=== PATIENT | male | born 1945 | race Caucasian/White ===

== ENCOUNTER 2019-10-09 18:38 | Inpatient (IN) | payer OTHER ==
[~2019-10-09] VITALS: Ht 182.9 cm; Wt 60.9 kg
[2019-10-09 18:20] VITALS: BP 146/77
--- NOTE | 2019-10-10 07:18 | NUR ---
10-09-19 CARE TRANSFERED 5 PT SUPINE RESTING WITH EYES CLOSED, PER SHIFT REPORT PT ARRIVED ON UNIT 1820 VS FOLLOWS B/P 146/77, P 80, R 16, T 98.2, 02 SAT 98%. THIS IS A LIMITED ADMISSION R/T SEDATION. SAT INSTRUCTOR HCP CONTACTED VIA TELEPHONE PT CURRENT MEDICATION REVIEWED AND ORDERS RECEIVED. ADMIT QUESTIONS WHERE ANSWERED BY KERRI CANO PT GRANDDAUGHTER. LATER PT WAS AWAKE, AAOX1 AND PT SPEECH WAS GARBLED (DURING REPORT OFF GOING RN REPORTED HE WAS NONVERBLED). PT DID STATED NO TO SI/SH/HI/VAH; AND DPSUDHA DID STATE SHE DID NOT THINK HE WAS SI/HI BUT UNSURE OF VAH R/T PTSD [place]. PT REQUESTED ICE WATER AND DRANK APPROXIMATELY 480 ML. THROUGHOUT NURSING ROUNDS PT SHOW NO S/S OF ACUTE EMOTIONAL OR MEDICAL DISTRESS.
[2019-10-10 09:12] VITALS: BP 110/80
[2019-10-10 10:14] VITALS: BP 110/50
[2019-10-10 10:15] LABS: CALCIUM 9.3 mg/dL (8.5-10.1); CREATININE 2.5 mg/dL (0.7-1.3); POTASSIUM 4.1 mmol/L (3.5-5.1)
--- NOTE | 2019-10-10 12:14 | NUR ---
1130 RESUMMED CARE FROM OVERNIGHT SHIFT THIS AM, PATIENT WAS SEDATED AND WAS VERY TO AROUSE. PATIENT TOOK MEDICATION CRUSHED IN APPLESAUCE WITH A LOT OF COACHING. PATIENTS ABDOMEN SOFT ROUND BOWEL SOUNDS PRESENT LUNGS CLEAR. PATIENT SLEPT A LITTLE WHILE AND IS NOW MORE ALERT FOR LUNCH AND IS FEEDING HIS SELF. PATIENTS SON CALLED AND WAS CONCERNED THAT HIS FATHER WAS TO SLEEPY AND WAS NOT MAKING SENSE WHEN HE TALKED WITH PATIENT YESTERDAY. PATIENTS SON WANTS TO KNOW IF RISPERIDAL WOULD BE A BETTER CHOICE. I TOLD PATIENT THAT ON SATURDAY DR CROWE WILL ADDRESS THE MEDICATION SITUATION. PATIENT HAS NOT DISPLAYED ANY BEHAVIORS AT PRESENT; WILL CONTINUE TO MONITOR PATIENT FOR SAFETY AND BEHAVIORS.
[2019-10-10 18:52] VITALS: BP 127/86
[2019-10-10 22:12] VITALS: BP 127/86
--- NOTE | 2019-10-10 23:19 | NUR ---
2300 RESUMMED CARE FROM DAY SHIFT THIS EVENING, PATIENT HAS BEEN LETHARGIC MOST OF THE DAY. PATIENT HAS BEEN IN RECLINER FOR THE FIRST PART OF SHIFT. BEFORE SHIFT CHANGE AT 1800 I CALLED GWENDOLYN GARCIA THE [facility] BECAUSE STAFF TOLD ME PATIENT HAD NOT URINATED ALL SHIFT. I SCAN BLADDER AND HE HAD 408 CC OF URINE, I STRAIT CATHED PATIENT AND GOT 300 CC OF URINE. PATIENT HAD URGE TO URINATE AROUND 1900 BUT COULD NOT GO AT THAT TIME. PATIENT CANNOT TELL YOU IF HE HAS SI/HI/AH/VH AT PRESENT DUE TO COGNITIVE D/O. PATIENTS ABDOMEN SOFT FLAT BOWEL SOUNDS PRESENT. PATIENT HAD A CATHETER PRIOR TO COMING HERE PATIENT MAY NEED FLUIDS DUE TO NOT HAVING GOOD INTAKE. WILL CONTINUE TO MONITOR PATIENT FOR BEHAVIORS AND SAFETY.
--- NOTE | 2019-10-11 02:08 | NUR ---
ASSUMED CARE OF PATIENT AT APPROXIMATELY 0015, PATIENT IS IN BED WITH EYES CLOSED AND APPEARS TO BE SLEEPING. RR APPEAR EVEN AND UNLABORED WITH NO S/S OF DISTRESS. NO ACUTE S/S OF PAIN OR MEDICAL PROBLEMS. NURSING WILL MAINTAIN Q12 CHECK TO ENSURE SAFETY AT ALL TIMES.
[2019-10-11 07:46] VITALS: BP 96/58
--- NOTE | 2019-10-11 08:15 | NUR ---
Assumed care 0700. Somnolent at breakfast, not wanting to wake up. Up in recliner, multiple times sliding down requiring two to pull him up. Not eating breakfast, spitting out food offered. No reply to what would he eat for breakfast.
--- NOTE | 2019-10-11 12:33 | NUR ---
REGGIE attempted to complete assessment with the Pt. However assessment could not be completed due to Pt's inability to answer questions. REGGIE was able to complete the asessment with the Pts guardian, Idania Roberto [phone], via phone call. Idania reported that the Pt is extremely sensitve to sound and loud noises. She also stated the Pt get very anxious when too many people are around him and when being asked a lot of questions. Idania reported Pt has not been eating food since the . Idania was concerned about the Pt continuing to not eat. Maritza stated the Pt likes ice cream slightly melted, cottage cheese, and almond milk. She also stated he does not like hard foods. Idania informed that Pt was scheduled for a Datscan to confirm if Pt truely had parkinson's but it has not been completed. Idania had not further questions or concerns at this time.
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
[2019-10-11 20:58] VITALS: BP 87/63
--- NOTE | 2019-10-12 02:53 | NUR ---
Assumed care on 10/11/19 @ 19:15, seated in francisco chair in day room. Eyes closed and leaning to the right. When spoken to responds with soft spoken answers. Does not answer assessment question. Takes medications one at a time, with water, however does not swollow meds and hold meds in mouth. Retired to bed @ 2130, has been asleep since that time. Upon rounding noted to be in bed, with eyes closed and respirations even and unlabored. No sleep disturbances note up to current time of this writing. Will continue to monitor q 12 minutes for patient safety and well being.
[2019-10-12 08:52] VITALS: BP 117/69
--- NOTE | 2019-10-12 14:08 | NUR ---
Sw called [facility] to confirm the fax and phone number and pt's residence.
[2019-10-12 17:43] VITALS: BP 117/69
[2019-10-12 19:20] VITALS: BP 101/54
--- NOTE | 2019-10-13 01:20 | NUR ---
ASSUMED CARE ON 10/12/19. IN BED AT THE START OF SHIFT. AWAKENS TO VOICE, COOPERATIVE WITH MEDICATION ADMINISTRATION, CRUSHED IN YOGART. LEANS TO THE LEFT IN BED. HRRR, LUNGS CTA BILAT, ABD N X 4 Q. C/O GENERAL PAIN, TYLENOL PROVIDED CRUSHED IN YOGART, 08/01 FOLLOW UP ASSESSMENT, PATIENT NOTED TO BE SLEEPING. WILL CONTINUE TO MONITOR Q 12 MINUTES FOR PATIENT SAFETY.
[2019-10-13 01:49] VITALS: BP 101/54
[2019-10-13 07:31] LABS: CALCIUM 9.2 mg/dL (8.5-10.1); POTASSIUM 4.6 mmol/L (3.5-5.1)
[2019-10-13 07:34] LABS: CREATININE 6.2 mg/dL (0.7-1.3)
[2019-10-13 07:42] VITALS: BP 136/75
[2019-10-13 08:00] VITALS: BP 136/75
--- NOTE | 2019-10-13 08:00 | NUR ---
CALLED DR. GARCIA ABOUT PT CREAT/BUN NUMBER.
--- NOTE | 2019-10-13 08:16 | NUR ---
DR. GARCIA CALLED BACK AND NOTIFIED HIM OF CRITICAL LAB VALUES, PT IS FULL CODE. PT NOT EATING OR DINKING OR TAKING MEDS. STATED HE WILL CONTACT DR. CROWE ABOUT POSS. HOSPICE.
--- NOTE | 2019-10-13 12:24 | NUR ---
SPEECH THERAPY HERE TO ASSESS PT EATING. PT NOT TAKING IN LIQUIDS, PT JUSTS SPITS OUT. BLADDER SCANNED PT AND WAS ONLY 8ML OF VOLUME IN BLADDER.
--- NOTE | 2019-10-13 14:10 | NUR ---
REGGIE and Dr noriega spoke with Idania guardian and discussed hospice options. REGGIE faxed a referral to [facility] hospice and scanned a Out of Hospital DNR for her to sign and scan back. Idania then asked for this worker to call and explin the need for hospice to her uncle. REGGIE completed this task and they seemed satisfied with this report. REGGIE received a call back from [facility] and they are beginnning the process for admissions.
--- NOTE | 2019-10-13 14:30 | NUR ---
TALKED TO LELAND BARNETT, GIRLFRIEND OF SON CHANI. SHE HAD QUESTIONS ABOUT JEANETH. SHE WANTED NURSE OPINION IF HE NEEDED HOSPICE OR NOT. SHE STATED HE HAS BEEN HAVING ISSUES WITH SWALLOWING FOR 10 MONTHS. SHE SAID HE ALSO HAD ISSUES WITH URINE RETENTION. SHE WANTED TO KNOW IF HE WAS ON IV FLUIDS, TOLD PT THAT PATIENT WITH IV FLUIDS ARE NOT CRITERIA FOR UNIT. SHE WANTED TO HAVE THIS BELL CLEANER ASK JEANETH IF HE IS WANTING TO LIVE OR IF HE WANTS TO HAVE A PEG TUBE. ARIS MANNING GAVE PERMISSION FOR THIS BELL CLEANER TO TALK TO LELAND. SHE STATED THE LAST TIME SHE SEEN JEANETH WAS IN AN ER PRIOR TO BEING ADMITTED AND HE WISPERED HELP TO HER.
--- NOTE | 2019-10-13 14:51 | NUR ---
REGGIE received a phone call from Idania and she has revoked the hospice referral, and wants this pt to stay here until the family has decided what to do. REGGIE called [facility] and cancelled the referral and reported this to Dr noriega.
--- NOTE | 2019-10-13 16:18 | NUR ---
Pt was unable to particpte due to medical
[2019-10-13 19:24] VITALS: BP 83/48
--- NOTE | 2019-10-14 02:45 | NUR ---
10-13-19 CARE TRANSFERED 1914 OBSERVED PT SUPINE RESTING WITH EYES CLOSED. PER SHIFT REPORT PT WAS PLACED ON PALLIATIVE CARE AND DPOA CORIE OK, THEN PALLIATIVE CARE WAS HELD OFF R/T SON AND GIRLFRIEND WANTING TO HOLD OFF TELL THEY TALK WITH PT. COMFORT CARE ORDERS ARE IN PLACE. 1999 PT WAS REPOSITION TO RIGHT SIDE USING PILLOW, PT WAS NON-VERBAL, BUT COOPERATIVE DURING REPOSITION AND NURSING ASSESSMENT. PT RESPONSE TO NAME, B/P IS LOW, RR EVEN AND NONLABORED ON RA. LATER NOTED PT RESTLESS AND ADMIN 5MG MORPHINE SL 2232, APPLIED MOUTH MOISTURE AND GAVE PT SEVERAL SPONGES FILLED WITH COLD WATER. DURING NEXT ROUND NOTED PT RESTLESS WITH FACIAL GRIMACING AND PT OPENED EYES AND STATE "I HURT". ADMIN MORPHINE AND ATIVAN SL, AND OFFERED SPONGES FILLED WITH COLD WATER. ASKED PT IF HE COULD EAT ICE CREAM AND PT NODDED HEAD, PT HAD 6 BITES OF VANILLA ICE CREAM AND PT WAS REPOSITION TO RIGHT SIDE WITH PILLOW UNDER RIGHT SHOULDER. NOTED DURING REASSESSMENT PT RESTING WITH EYES CLOSED. WILL CONTINUE TO MONITOR PT PER [facility] PROTOCOL.
[2019-10-14 07:49] VITALS: BP 89/53
--- NOTE | 2019-10-14 09:00 | NUR ---
Assumed care 0700. On right side. Face and hands washed. Somnolent. Nurse attempted to wake him up, no success. He is dry, not incontinent. He wasturned to the left side, appears comfortable. No facial wincing, mouth slightly open. Breathing shallow respirations=16. BP at 0820=80/64 P=80 done manually=left arm.
--- NOTE | 2019-10-14 10:47 | NUR ---
ROBERT spoke with Idania and she requested a visit at 2pm today. ROBERT reported to her that this pt was no longer able to communicate, he was rigid and was having comfort measures only. Robert advised her that the pt was using comfort care only at this time. She statd that she would talk to the staff and Dr noriega about the next intervention. ROBERT reported this to house coordinator, staff, put it on the white board and added her name to the designated visitor list
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
--- NOTE | 2019-10-14 16:38 | NUR ---
Robert spoke with Idania and she stated that she was still coming in to the pt today, and should be here by 5:15pm. Sw reported this to nursing
--- NOTE | 2019-10-14 16:48 | NUR ---
SW called Idania back after speaking with the warehouse worker 2nd shift and she CANNOT visit grady. Sw called her back and asked her to come during visiting hours tomoorrow - she thought she could get here by 8am. REGGIE reported this to Dr Newman and nursing.
[2019-10-14 19:34] VITALS: BP 126/82
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
--- NOTE | 2019-10-15 03:16 | NUR ---
10-14-19 CARE TRANSFERED 1914 OBSERVED PT SUPINE RESTING WITH EYES CLOSED. 1934 PT REPOSITION TO RIGHT SIDE, PT RESPONSE TO NAME BUT REMAINS WITH EYES CLOSED. PT VSS, RR EVEN AND NONLABORED, SKIN W/D; NO S/S OF PAIN AT THIS TIME. UNABLE TO ASSESS SI/HI R/T PT SOMETIMES IS NONVERBAL OR HAS LIMITED VERBAL EXCHANGE. PT DID EXCEPT SPONGE FILLED WITH COLD WATER SEVERAL TIMES THEN WAIVED AWAY, MOUTH MOISTURE APPLIED TO LIPS. ANSWERED CALL SON CHANI AND SPOKE WITH GIRLMARYSOL HA ABOUT VISITATION; RECEIVED INFORMATION ABOUT CURRENT VISITATION AND RETURN INFORMATION TO CHANI AND LELAND AFTER CONFIRMING THAT VISITATION HAS BEEN LIMITED TO 7AM TO 5PM R/T [facility] AND [facility] MAY BE ABLE TO MAKE SPECIAL ARRANGEMENTS FOR AFTERHOURS VISITATION. LATER NOTED PT RESTLESS WITH FACIAL GRIMCING; PT ANSWERED ABOUT PAIN "I HURT" PRN MEDICATION ADMIN (SEE MAY). PT ALSO TOOK 2 BITES OF ICE CREAM, AND SEVERAL SPONGES OF COLD WATER. PT REPOSITION WITH PILLOW UNDER LEFT HIP, LATER PT WAS REPOSITION WITH PILLOW UNDER RIGHT SHOULDER. WILL CONTINUE TO MONITOR PER [facility] PROTOCOL.
[2019-10-15 07:25] VITALS: BP 109/65
--- NOTE | 2019-10-15 09:17 | NUR ---
Robert spoke with Idania and her uncle in the room with nursing present. Sw advised that there can only be 1 deisgnated visitor and that no one else can come up but they still asked for another family member who is in the lobby to come up. Sw will advise Dr noriega and fely on how to proceed. Sw also provided education about end stage dying and some support.
[2019-10-15 09:52] VITALS: BP 109/65
--- NOTE | 2019-10-15 11:54 | NUR ---
RESUMMED CARE FROM OVERNIGHT SHIFT THIS AM, PATIENT IN ROOM RESTING QUIETLY. PATIENT IS ON COMFORT CARE DUE TO DECLINE IN CONDITION, PATIENTS FAMILY HERE. DPOA WANTED FLUIDS GIVEN TO PATIENT AND WANTED TO KNOW THE RESULTS OF MRI. DR CROWE TALKED WITH FAMILY ABOUT RESULTS. DR GARCIA CAME AND TALKED WITH PATIENTS FAMILY. DR GARCIA ORDERED SODIUM CHLORIDE 1000 ML AT RATE OF 250 AN HOUR. BOTH DOCTORS TALKED WITH FAMILY ABOUT THE CONDITION OF PATIENTS QUALITY OF LIFE GOING FORWARD. PATIENTS DPOA IS IN DENIAL ABOUT PATIENTS CONDITION AND THINKS HE IS GOING TO RECOVER. SHE DOES NOT WANT PATIENT TO HAVE HOSPICE AT THIS TIME. PATIENTS ABDOMEN SOFT FLAT BOWEL SOUNDS FAINT PATIENT DID NOT HAVE ANY URINE OUTPUT LAST NIGHT. PATIENT IS NOT ABLE TO TELL YOU ABOUT SI/HI/AH/VH AT PRESENT DUE TO COGNITIVE DECLINE. PATIENT IN DAY ROOM WITH IV GOING PATIENT HAS OCCASIONAL JERKING MOVEMENT IN LEFT LEG AND ARM, WILL CONTINUE TO MONITOR PATIENT FOR SAFETY AND BEHAVIORS. PT HAS HAD NO URINARY OUTPUT THUS FAR THIS SHIFT. IV PLACED TO RIGHT WRIST, FLUSHING WELL, NO REDNESS OBSERVED. NO RESISTANCE OBSERVED WHILE IV WAS BEING PLACED. NOT RESPONSIVE TO PAINFUL STIMULI AT THIS TIME. PT SEATED QUIETLY AND SHOWING NO S/S OF PAIN OR DISCOMFORT.
[2019-10-15 14:13] VITALS: BP 109/65
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
== END 2019-10-15 15:58 | disposition short-term general hospital (02) | DRG 56 ==
LOC: SBH
PROVIDERS: Nurse Practitioner Family; ADMIT Psychiatry & Neurology Psychiatry; ATTEND Psychiatry & Neurology Psychiatry
DX: G20 Parkinson's disease (principal); F01.51 Vascular dementia, unspecified severity, with behavioral disturbance; G92 Toxic encephalopathy; E43 Unspecified severe protein-calorie malnutrition; N17.9 Acute kidney failure, unspecified; Z68.1 Body mass index [BMI] 19.9 or less, adult; F41.9 Anxiety disorder, unspecified; R33.9 Retention of urine, unspecified; K21.9 Gastro-esophageal reflux disease without esophagitis; I10 Essential (primary) hypertension; F02.80 Dementia in other diseases classified elsewhere, unspecified severity, without behavioral disturbance, psychotic disturbance, mood disturbance, and anxiety; F43.10 Post-traumatic stress disorder, unspecified; Z88.2 Allergy status to sulfonamides; Z88.8 Allergy status to other drugs, medicaments and biological substances; Z82.49 Family history of ischemic heart disease and other diseases of the circulatory system
CPT/HCPCS: 10880